=== PATIENT | male | born 1980 | race Two or more races ===

== ENCOUNTER 2022-12-01 21:30 | Emergency (ER) | payer OTHER ==
[~2022-12-01] VITALS: Ht 162.6 cm; Wt 61.2 kg
[2022-12-01 23:07] LABS: HEMATOCRIT 40.2 % (39.0-48.0); HEMOGLOBIN 13.5 g/dL (13-16.00); MEAN CELL VOLUME 95.7 fL (80.0-100.00); MEAN CORPUSCULAR HEMOGLOBIN 32.2 pg (27.00-32.0); MEAN CORPUSCULAR HGB CONC 33.6 g/dl (32.0-36.0); PLATELET COUNT 197 K/uL (150-450); RED CELL DISTRIBUTION WIDTH 13.5 % (11.5-14.5)
== END 2022-12-02 00:42 | disposition home or self-care (01) ==
LOC: ER 21:30
PROVIDERS: General Practice
DX: J06.9 Acute upper respiratory infection, unspecified (principal); Z20.822 Contact with and (suspected) exposure to COVID-19

== ENCOUNTER → 2024-05-09 | Emergency (ER) | payer OTHER ==
[~2024-05-09] VITALS: Ht 162.6 cm; Wt 70.3 kg
== END | disposition left against medical advice (07) ==
LOC: ER 20:48
DX: J06.9 Acute upper respiratory infection, unspecified (principal); Z88.2 Allergy status to sulfonamides